=== PATIENT | female | born 1995 | race Caucasian/White ===

== ENCOUNTER 2017-06-14 06:00 | Emergency (ER) | payer SELFPAY ==
[~2017-06-14] VITALS: Ht 162.6 cm; Wt 115.0 kg
[2017-06-14 06:04] VITALS: BP 151/92; PULSE 108; RESP 16; TEMP 98.5; O2SAT 98
[2017-06-14] MEDS ORDERED: BIRTH CONTROL (06:13)
[2017-06-14] MEDS ORDERED: ZOLO25TA PO (06:13)
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
[2017-06-14 07:44] LABS: AMORPHOUS SEDIMENT, URINE RARE; BACTERIA, URINE OCC /hpf; BILIRUBIN, URINE NEG (NEG); BLOOD, URINE NEG (NEG); GLUCOSE,URINE NEG (NEG); KETONE, URINE NEG (NEG); MUCUS URINE FEW /lpf (OCC); NITRITE,URINE NEG (NEG); PH, URINE 6.5 (5.0-8.5); SQUAMOUS EPITHELIAL CELL URINE 1 /hpf (0-5); URINE COLOR YELLOW (YELLW/STRAW); URINE LEUKOCYTE ESTERASE TRACE (NEG)
== END 2017-06-14 17:42 | disposition home or self-care (01) ==
LOC: NEPE 06:00
DX: T74.21XA Adult sexual abuse, confirmed, initial encounter (principal); Z79.899 Other long term (current) drug therapy; Z72.0 Tobacco use
CPT/HCPCS: 81001; 84703; 99281